=== PATIENT | female | born 1965 ===

== ENCOUNTER 2017-06-09 07:09 | Observation (INO) | payer BC ==
[~2017-06-09 07:09] MED LIST: Lactated Ringers 1,000 ML IV SCH; Lidocaine 1%/Sod Bicarbonate in NS 8.4% 1 ML Syringe IV PRN; Sodium Chloride 0.9% 10 ML Syringe FLUSH PRN
[2017-06-09] MEDS ORDERED: Rocuronium 50 MG/5 ML Vial ONE (07:11)
[2017-06-09] MEDS ORDERED: Ketorolac 30 MG/ML SDV ONE (07:11)
[2017-06-09] MEDS ORDERED: HYDROmorphone 1 MG/ML Syringe ONE ×2 (07:11→08:44)
[2017-06-09] MEDS ORDERED: ceFAZolin 1 GM Vial ONE (07:11)
[2017-06-09] MEDS ORDERED: Dexamethasone 4 MG/ML SDV ONE (07:11)
[2017-06-09] MEDS ORDERED: Midazolam 1 MG/ML 2 ML SDV ONE (07:11)
[2017-06-09] MEDS ORDERED: fentaNYL 250 MCG/5 ML SDV ONE (07:11)
[2017-06-09] MEDS ORDERED: Ondansetron 4 MG/2 ML SDV ONE (07:11)
[2017-06-09] MEDS ORDERED: Propofol 200 MG/20 ML SDV ONE ×2 (07:11→10:10)
[2017-06-09] MEDS ORDERED: Lidocaine 1% with EPINEPHrine 1:100,000 20 ML MDV ONE (07:21)
[2017-06-09] MEDS ORDERED: Bupivacaine 0.5% 30 ML SDV ONE (07:21)
[2017-06-09] MEDS ORDERED: Sodium Chloride 0.9% 50 ML SDV ONE (07:22)
--- NOTE | 2017-06-09 07:31 | PCM.PREANE ---
Preanesthetic Assessment - Anesthesia/Transfusion/Family Hx Anesthesia History: Prior Anesthesia Without Reaction Family History of Anesthesia Reaction: No Transfusion History: No Prior Transfusion(s) - Review of Systems General: Other (obesity, BMI 46.6, right otitis media) Pulmonary: No Symptoms, Other Cardiovascular: No Symptoms, Other Gastrointestinal: Other (occassional reflux) Neurological: No Symptoms Other: Reports: None - Physical Assessment NPO Status Date: 06/08/17 NPO Status Time: 20:00 Pulse: 83 O2 Sat by Pulse Oximetry: 95 Respiratory Rate: 16 Blood Pressure: 126/76 Height: 1.57 m Weight: 106.594 kg ASA Class: 2 Mental Status: Alert & Oriented x3 Dentition: Reports: Normal Dentition Thyro-Mental Finger Breadths: 3 Mouth Opening Finger Breadths: 3 ROM/Head Extension: Full Lungs: Clear to Auscultation, Normal Respiratory Effort Cardiovascular: Regular Rate, Regular Rhythm - Lab Values: Laboratory Last Values WBC 6.58 K/mm3 (3.98-10.04) 06/08/17 12:10 RBC 4.78 M/mm3 (3.98-5.22) 06/08/17 12:10 Hgb 13.8 gm/L (11.2-15.7) 06/08/17 12:10 Hct 40.8 % (34.1-44.9) 06/08/17 12:10 MCV 85.4 fl (79.4-94.8) 06/08/17 12:10 MCH 28.9 pg (25.6-32.2) 06/08/17 12:10 MCHC 33.8 g/dl (32.2-35.5) 06/08/17 12:10 RDW Std Deviation 40.2 fL (36.4-46.3) 06/08/17 12:10 Plt Count 317 K/mm3 (182-369) 06/08/17 12:10 MPV 9.7 fl (9.4-12.3) 06/08/17 12:10 Neut % (Auto) 54.7 % (34.0-71.1) 06/08/17 12:10 Lymph % (Auto) 38.4 % (19.3-51.7) 06/08/17 12:10 Hale % (Auto) 5.5 % (4.7-12.5) 06/08/17 12:10 Eos % (Auto) 1.2 (0.7-5.8) 06/08/17 12:10 Baso % (Auto) 0.2 % (0.1-1.2) 06/08/17 12:10 Neut # (Auto) 3.60 K/mm3 (1.56-6.13) 06/08/17 12:10 Lymph # (Auto) 2.53 K/mm3 (1.18-3.74) 06/08/17 12:10 Hale # (Auto) 0.36 K/mm3 (0.24-0.36) 06/08/17 12:10 Eos # (Auto) 0.08 K/mm3 (0.04-0.36) 06/08/17 12:10 Baso # (Auto) 0.01 K/mm3 (0.01-0.08) 06/08/17 12:10 Blood Type A POSITIVE 06/08/17 12:10 Gel Antibody Screen Negative 06/08/17 12:10 - Allergies Allergies/Adverse Reactions: Allergies Allergy/AdvReac Type Severity Reaction Status Date / Time No Known Allergies Allergy Verified 06/08/17 12:32 - Blood Blood Available: No Product(s) Available: None - Anesthesia Plan Pre-Op Medication Ordered: None - Acknowledgements Anesthesia Type Planned: General Anesthesia Pt an Appropriate Candidate for the Planned Anesthesia: Yes Alternatives and Risks of Anesthesia Discussed w Pt/Guardian: Yes Pt/Guardian Understands and Agrees with Anesthesia Plan: Yes PreAnesthesia Questionnaire HEENT History: Reports: Impaired Vision, Otitis Media, Other (See Below) Other HEENT History: serous otitis media R ear Cardiovascular History: Reports: None Respiratory History: Reports: Other (See Below) Other Respiratory History: ground glass opacity on chest xray Gastrointestinal History: Reports: None Genitourinary History: Reports: None RECREATION AIDE History: Reports: Other (See Below) Other OB/BYN History: post menopausal bleeding Other Musculoskeletal History: right shoulder pain Neurological History: Reports: None Psychiatric History: Reports: None Endocrine/Metabolic History: Reports: Obesity/BMI 30+ Hematologic History: Reports: None Immunologic History: Reports: None Oncologic (Cancer) History: Reports: None Dermatologic History: Reports: Other (See Below) Other Dermatologic History: soft tissue mass - Past Surgical History Head Surgeries/Procedures: Reports: None HEENT Surgical History: Reports: None Cardiovascular Surgical History: Reports: None Respiratory Surgical History: Reports: None GI Surgical History: Reports: Cholecystectomy, Colonoscopy Female Surgical History: Reports: None Male Surgical History: Reports: None Neurological Surgical History: Reports: None Musculoskeletal Surgical History: Reports: Other (See Below) Other Musculoskeletal Surgeries/Procedures:: foot surgery Oncologic Surgical History: Reports: None - SUBSTANCE USE Smoking Status *Q: Never Smoker Recreational Drug Use History: No - HOME MEDS Home Medications: Home Meds Cetirizine [ZyrTEC] 1 tab PO DAILY 08/05/16 [History] Estradiol [Vivelle-Dot] 1 patch TOP ASDIRECTED 08/05/16 [History] medroxyPROGESTERone Acetate [Medroxyprogesterone Acetate] 1.25 mg PO DAILY 08/05 [History] Fluticasone Propionate [Flonase] 1 spray NASBOTH DAILY 06/08/17 [History] - CURRENT (IN HOUSE) MEDS Current Meds: Current Medications Lactated Ringer's (Ringers, Lactated) 1,000 mls @ 125 mls/hr IV ASDIRECTED MAYRA Stop: 06/09/17 23:00 Lidocaine/Sodium Bicarbonate (Buffered Lidocaine 1% In Ns 8.4%) 0.25 ml IV ONETIME PRN PRN Reason: Prior to IV Start Stop: 06/09/17 18:00 Sodium Chloride (Saline Flush) 10 ml FLUSH ASDIRECTED PRN PRN Reason: Keep Vein Open Stop: 06/09/17 18:00 Discontinued Medications Cefazolin Sodium (Ancef) Confirm Administered Dose 2 gm .ROUTE .STK-MED ONE Stop: 06/09/17 07:12 Dexamethasone (Dexamethasone) Confirm Administered Dose 8 mg .ROUTE .STK-MED ONE Stop: 06/09/17 07:12 Fentanyl (Sublimaze) Confirm Administered Dose 250 mcg .ROUTE .STK-MED ONE Stop: 06/09/17 07:12 Hydromorphone HCl (Dilaudid) Confirm Administered Dose 1 mg .ROUTE .STK-MED ONE Stop: 06/09/17 07:12 Ketorolac Tromethamine (Toradol) Confirm Administered Dose 30 mg .ROUTE .STK- MED ONE Stop: 06/09/17 07:12 Midazolam HCl (Versed 1 Mg/Ml) Confirm Administered Dose 2 mg .ROUTE .STK-MED ONE Stop: 06/09/17 07:12 Ondansetron HCl (Zofran) Confirm Administered Dose 4 mg .ROUTE .STK-MED ONE Stop: 06/09/17 07:12 Propofol (Diprivan 20 Ml) Confirm Administered Dose 200 mg .ROUTE .STK-MED ONE Stop: 06/09/17 07:12 Rocuronium [place] (Zemuron) Confirm Administered Dose 50 mg .ROUTE .STK-MED ONE Stop: 06/09/17 07:12
[2017-06-09] MEDS ORDERED: Lactated Ringers 1,000 ML ONE ×2 (08:34→11:04)
[2017-06-09] MEDS ORDERED: Ondansetron 4 MG/2 ML SDV IVPUSH PRN ×2 (10:41→12:18)
[2017-06-09] MEDS ORDERED: fentaNYL 100 MCG/2 ML SDV IVPUSH PRN (10:41)
[2017-06-09] MEDS ORDERED: HYDROmorphone 0.5 MG/0.5 ML Syringe IVPUSH PRN (10:41)
--- NOTE | 2017-06-09 10:41 | PCM.POSTAN ---
POST ANESTHESIA ASSESSMENT - MENTAL STATUS Mental Status: Alert, Oriented - VITAL SIGNS Pulse Rate: 87 SaO2: 98 Resp Rate: 13 Blood Pressure: 140/80 Temperature: 36.7 C - RESPIRATORY Respiratory Status: Respiratory Rate WNL, Airway Patent, O2 Saturation Stable, Supplemental Oxygen - CARDIOVASCULAR CV Status: Pulse Rate WNL, Blood Pressure Stable - GASTROINTESTINAL GI Status: No Symptoms - PAIN Pain Score: 0 - POST OP HYDRATION Hydration Status: Adequate & Stable
--- NOTE | 2017-06-09 10:57 | PCM.OPNOTE ---
- General Post-Op/Procedure Note Date of Surgery/Procedure: 06/09/17 Operative Procedure(s): Laparoscope assisted vaginal hysterectomy bilateral salpingo-oophorectomy. Repair of bladder injury at surgery (cystorrhaphy) Pre Op Diagnosis: Postmenopausal bleeding Post-Op Diagnosis: Same plus injury to bladder at surgery (repaired) Anesthesia Technique: General ET Tube Primary Surgeon: Toby Cox Secondary Surgeon: Joshua Davey Anesthesia Provider: Carolina Welsh Weigher And Grader: Thor Bautista (Vaginal portion) Reason Weigher And Grader Was Necessary: patient safety, assist with difficult procedure and helf decrease co-morbidity and co-mortality (assistance essential in helping repair bladder) Role of Weigher And Grader: patient safety, assist with difficult procedure and helf decrease co-morbidity and co-mortality (assistance essential in helping repair bladder) Fluid Replacement, Intraop: 2,000 Output, Urine Amount: 45 (ante cystorrhaphy) EBL in mLs: 100 Drain/Tube Comments:: Monroy to gravity drainage close system Complications: Bladder injury identified at surgery repaired (cystorrhaphy) Condition: Good Free Text/Narrative:: Patient was transported to operating room #1 and placed under general anesthesia with endotracheal intubation in the low dorsal lithotomy position and prepared and draped in a sterile fashion. SCDs in place and functioning prior surgery Ancef 2 g given intravenously prior surgery. Timeout performed confirming name date of and procedure. Examination under anesthesia had revealed anterior uterus no adnexal masses. Monroy catheter was placed gravity drainage. Vaginal and abdominal prep having been performed and the patient draped in a sterile fashion uterine manipulator was placed to allow maneuvering of the uterus during surgery. Infraumbilical incision area was injected with 2 mL of 0.5% Marcaine without epinephrine and suprapubic area as well as injected with 2 mL of 0.5% Marcaine without epinephrine. Pneumoperitoneum needle was introduced and pneumoperitoneum was obtained the 5 mm trocar was then introduced at the umbilicus and prompt visualization of the intra-abdominal cavity. Suprapubic 5 mm port then introduced and utilizing forceps to grasp to manipulate the tissue both tubes and ovaries were identified patient had had previous cholecystectomy. The appendix was normal. Utilizing the Enseal apparatus and placing 2 additional ports one the left and right flank with transillumination of the abdominal cavity and after injecting 2 mL of 0.5% Marcaine and the 5 mm ports were introduced and the right tube and ovary grasped and electrocoagulated using Endo seal bipolar and proceeding in a pedicle fashion towards the uterus. Crossclamping the round ligament activating and incising. The uterine vasculature was isolated crossclamped activated in seal and incised with good hemostasis. Right-hand portion of bladder flap was created and pushed caudad. The left tube and ovary then grasped and elevated and utilizing Endo seal crossclamping activating and incising and proceeding to the area of the round ligament where it inserted into the uterus crossclamping activating and incising proceeding caudad crossclamping activating incising until the area of the lower uterine segment was approximated and bladder flap created on that side meeting at the midline. Hemostasis was normal the scope was removed and patient placed in the lithotomy position to began the vaginal portion of the procedure. The cervix was injected with approximately 15 mL of 0.25% lidocaine with epinephrine. Incising this into the tissues and circumscribing the cervix posterior colpotomy was then performed placing the long weighted speculum. Utilizing the Endo seal apparatus crossclamping activating incising the uterosacral and cardinal ligaments were incised. Proceeding cephalad additional clamp on each side to create small pedicle activated and incised and anterior colpotomy was then performed one additional pedicle bilaterally and the uterus tubes and ovaries removed in block. Upon incising into the anterior cul-de-sac A injury to the bladder occurred and was noticed and repaired. The injury was confirmed by injecting baby formula into the urinary catheter and confirming spillage through the bladder injury. There was no cautery injury to the edge of the bladder. The injury occurred during the anterior colpotomy portion of the procedure. The laceration and the bladder was oversewn with 2 layers first layer of 3-0 Monocryl running suture second layer running locking suture of 3-0 Monocryl and additional small rent just above that repair was also closed in 2 layers with 3-0 Monocryl. Confirming no spillage of baby formula after closure of the bladder injuries. The anterior posterior cuff approximated with 0 Monocryl running locking suture. An needle pack asthma sharp count correct 2 upon closure of the vaginal cuff. Laparoscopy was again performed by obtaining pneumoperitoneum and observing the surgery area there was no formula in the cul-de-sac. 120 mL of formula placed in the bladder and no leakage of formula either into the abdominal cavity or vaginally observed. Discussion was made concerning possible cystoscopy and decision made that it would not be performed. Sponge needle pack asthma sharp count correct 2 the abdominal cavity ports were removed and skin sutured with 4 -0 Monocryl. Dermabond applied. No blood transfusions required during the surgery. Patient was transported postanesthesia care unit in satisfactory condition. The Monroy catheter will be left in for approximately 2 weeks. Patient will be placed on Macrobid for urinary antisepsis. Serum creatinine has been ordered on preop lab work. I talked with the patient, her and daughter concerning the surgery and the noted complications. All questions answered voiced satisfaction One set of pictures 6 images image 001 shows the uterus with both fallopian tubes noted. Image 002 shows right tube and ovary image 003 shows left tube and ovary image 004 shows normal appendix image 005 shows area of the liver patient has had previous cholecystectomy image 006 shows the posterior cul-de-sac with the uterus at 12:00 central.
[2017-06-09] MEDS ORDERED: Acetaminophen/oxyCODONE 325-5 MG Tab PO PRN (12:18)
[2017-06-09] MEDS ORDERED: ESTRADIOL 0.05 MG/24 HR TRDERM SCH (12:18)
[2017-06-09] MEDS ORDERED: Ketorolac 15 MG/ML SDV IVPUSH PRN (16:00)
[2017-06-09] MEDS ORDERED: FLU Vacc QS 2017-18 (6mos UP)/PF 60 MCG/0.5 ML Syringe IM ONE (16:00)
[2017-06-09] MEDS: Phenazopyridine 95 MG Tab PO SCH ×3 (16:09→20:41)
--- NOTE | 2017-06-09 17:11 | PCM.SN ---
- Free Text/Narrative Note: Afebril. Pain under control. No vaginal bleeding or leakage of yellow fluid. Output past hour 325 ml, clear, yellow, no formula, no blood. Patient ambulating. Patient stable.
[2017-06-09] MEDS: Nitrofurantoin Monohydrate/Macrocrystalline 100 MG Cap PO SCH ×2 (19:32→22:02)
[2017-06-09] MEDS ORDERED: Acetaminophen 325 MG Tab PO PRN (19:35)
[2017-06-09] MEDS ORDERED: Ibuprofen 600 MG Tab PO PRN (19:36)
[2017-06-10 07:34] VITALS: BP 155/71
--- NOTE | 2017-06-10 08:07 | PCM48HPAN ---
Post Anesthesia Note - EVALUATION WITHIN 48HRS OF ANESTHETIC Vital Signs in Normal Range: Yes Patient Participated in Evaluation: Yes Respiratory Function Stable: Yes Airway Patent: Yes Cardiovascular Function Stable: Yes Hydration Status Stable: Yes Pain Control Satisfactory: Yes Nausea and Vomiting Control Satisfactory: Yes Mental Status Recovered: Yes
[2017-06-10] MEDS: Nitrofurantoin Monohydrate/Macrocrystalline 100 MG Cap PO SCH (08:33)
[2017-06-10] MEDS: Phenazopyridine 95 MG Tab PO SCH (08:33)
--- NOTE | 2017-06-10 08:50 | PCM.DCSUM1 ---
Discharge Summary - Hospital Course Free Text/Narrative:: [facility] Post-Op/Procedure Note Patient Name: ADILENE DAVILA Date of : 65 Patient Status: Observation Attending Provider: Toby Cox Date: 06/09/17 10:51 Initialization Date: 06/09/17 10:51 - General Post-Op/Procedure Note Date of Surgery/Procedure: 06/09/17 Operative Procedure(s): Laparoscope assisted vaginal hysterectomy bilateral salpingo-oophorectomy. Repair of bladder injury at surgery (cystorrhaphy) Pre Op Diagnosis: Postmenopausal bleeding Post-Op Diagnosis: Same plus injury to bladder at surgery (repaired) Anesthesia Technique: General ET Tube Primary Surgeon: Toby Cox Secondary Surgeon: Joshua Davey Anesthesia Provider: Carolina Welsh Assembly Person: Thor Bautista (Vaginal portion) Reason Assembly Person Was Necessary: patient safety, assist with difficult procedure and helf decrease co-morbidity and co-mortality (assistance essential in helping repair bladder) Role of Assembly Person: patient safety, assist with difficult procedure and helf decrease co-morbidity and co-mortality (assistance essential in helping repair bladder) Fluid Replacement, Intraop: 2,000 Output, Urine Amount: 45 (ante cystorrhaphy) EBL in mLs: 100 Drain/Tube Comments:: Mason to gravity drainage close system Complications: Bladder injury identified at surgery repaired (cystorrhaphy) Condition: Good Free Text/Narrative:: Patient was transported to operating room #1 and placed under general anesthesia with endotracheal intubation in the low dorsal lithotomy position and prepared and draped in a sterile fashion. SCDs in place and functioning prior surgery Ancef 2 g given intravenously prior surgery. Timeout performed confirming name date of and procedure. Examination under anesthesia had revealed anterior uterus no adnexal masses. Mason catheter was placed gravity drainage. Vaginal and abdominal prep having been performed and the patient draped in a sterile fashion uterine manipulator was placed to allow maneuvering of the uterus during surgery. Infraumbilical incision area was injected with 2 mL of 0.5% Marcaine without epinephrine and suprapubic area as well as injected with 2 mL of 0.5% Marcaine without epinephrine. Pneumoperitoneum needle was introduced and pneumoperitoneum was obtained the 5 mm trocar was then introduced at the umbilicus and prompt visualization of the intra-abdominal cavity. Suprapubic 5 mm port then introduced and utilizing forceps to grasp to manipulate the tissue both tubes and ovaries were identified patient had had previous cholecystectomy. The appendix was normal. Utilizing the Enseal apparatus and placing 2 additional ports one the left and right flank with transillumination of the abdominal cavity and after injecting 2 mL of 0.5% Marcaine and the 5 mm ports were introduced and the right tube and ovary grasped and electrocoagulated using Endo seal bipolar and proceeding in a pedicle fashion towards the uterus. Crossclamping the round ligament activating and incising. The uterine vasculature was isolated crossclamped activated in seal and incised with good hemostasis. Right-hand portion of bladder flap was created and pushed caudad. The left tube and ovary then grasped and elevated and utilizing Endo seal crossclamping activating and incising and proceeding to the area of the round ligament where it inserted into the uterus crossclamping activating and incising proceeding caudad crossclamping activating incising until the area of the lower uterine segment was approximated and bladder flap created on that side meeting at the midline. Hemostasis was normal the scope was removed and patient placed in the lithotomy position to began the vaginal portion of the procedure. The cervix was injected with approximately 15 mL of 0.25% lidocaine with epinephrine. Incising this into the tissues and circumscribing the cervix posterior colpotomy was then performed placing the long weighted speculum. Utilizing the Endo seal apparatus crossclamping activating incising the uterosacral and cardinal ligaments were incised. Proceeding cephalad additional clamp on each side to create small pedicle activated and incised and anterior colpotomy was then performed one additional pedicle bilaterally and the uterus tubes and ovaries removed in block. Upon incising into the anterior cul-de-sac A injury to the bladder occurred and was noticed and repaired. The injury was confirmed by injecting baby formula into the urinary catheter and confirming spillage through the bladder injury. There was no cautery injury to the edge of the bladder. The injury occurred during the anterior colpotomy portion of the procedure. The laceration and the bladder was oversewn with 2 layers first layer of 3-0 Monocryl running suture second layer running locking suture of 3-0 Monocryl and additional small rent just above that repair was also closed in 2 layers with 3-0 Monocryl. Confirming no spillage of baby formula after closure of the bladder injuries. The anterior posterior cuff approximated with 0 Monocryl running locking suture. An needle pack asthma sharp count correct 2 upon closure of the vaginal cuff. Laparoscopy was again performed by obtaining pneumoperitoneum and observing the surgery area there was no formula in the cul-de-sac. 120 mL of formula placed in the bladder and no leakage of formula either into the abdominal cavity or vaginally observed. Discussion was made concerning possible cystoscopy and decision made that it would not be performed. Sponge needle pack asthma sharp count correct 2 the abdominal cavity ports were removed and skin sutured with 4 -0 Monocryl. Dermabond applied. No blood transfusions required during the surgery. Patient was transported postanesthesia care unit in satisfactory condition. The Mason catheter will be left in for approximately 2 weeks. Patient will be placed on Macrobid for urinary antisepsis. Serum creatinine has been ordered on preop lab work. I talked with the patient, her and daughter concerning the surgery and the noted complications. All questions answered voiced satisfaction One set of pictures 6 images image 001 shows the uterus with both fallopian tubes noted. Image 002 shows right tube and ovary image 003 shows left tube and ovary image 004 shows normal appendix image 005 shows area of the liver patient has had previous cholecystectomy image 006 shows the posterior cul-de-sac with the uterus at 12:00 central. Creatinine 0.9 before surgery and 0.8 today. Output good since surgery. Will keep mason in place with leg bag and mason care training. RTC 1 week. Macrobid 100 mg bid x2 weeks, Pyridium tid x2 weeks and Estradiol Transdermal Patch 0.05 change every Thursday and disp 180 refill 3 HPI Initial Comments: [facility] Post-Op/Procedure Note Patient Name: ADILENE DAVILA Date of : 65 Patient Status: Observation Attending Provider: Toby Cox Date: 06/09/17 10:51 Initialization Date: 06/09/17 10:51 - General Post-Op/Procedure Note Date of Surgery/Procedure: 06/09/17 Operative Procedure(s): Laparoscope assisted vaginal hysterectomy bilateral salpingo-oophorectomy. Repair of bladder injury at surgery (cystorrhaphy) Pre Op Diagnosis: Postmenopausal bleeding Post-Op Diagnosis: Same plus injury to bladder at surgery (repaired) Anesthesia Technique: General ET Tube Primary Surgeon: Toby Cox Secondary Surgeon: Joshua Davey Anesthesia Provider: Carolina Welsh Assembly Person: Thor Bautista (Vaginal portion) Reason Assembly Person Was Necessary: patient safety, assist with difficult procedure and helf decrease co-morbidity and co-mortality (assistance essential in helping repair bladder) Role of Assembly Person: patient safety, assist with difficult procedure and helf decrease co-morbidity and co-mortality (assistance essential in helping repair bladder) Fluid Replacement, Intraop: 2,000 Output, Urine Amount: 45 (ante cystorrhaphy) EBL in mLs: 100 Drain/Tube Comments:: Mason to gravity drainage close system Complications: Bladder injury identified at surgery repaired (cystorrhaphy) Condition: Good Free Text/Narrative:: Patient was transported to operating room #1 and placed under general anesthesia with endotracheal intubation in the low dorsal lithotomy position and prepared and draped in a sterile fashion. SCDs in place and functioning prior surgery Ancef 2 g given intravenously prior surgery. Timeout performed confirming name date of and procedure. Examination under anesthesia had revealed anterior uterus no adnexal masses. Mason catheter was placed gravity drainage. Vaginal and abdominal prep having been performed and the patient draped in a sterile fashion uterine manipulator was placed to allow maneuvering of the uterus during surgery. Infraumbilical incision area was injected with 2 mL of 0.5% Marcaine without epinephrine and suprapubic area as well as injected with 2 mL of 0.5% Marcaine without epinephrine. Pneumoperitoneum needle was introduced and pneumoperitoneum was obtained the 5 mm trocar was then introduced at the umbilicus and prompt visualization of the intra-abdominal cavity. Suprapubic 5 mm port then introduced and utilizing forceps to grasp to manipulate the tissue both tubes and ovaries were identified patient had had previous cholecystectomy. The appendix was normal. Utilizing the Enseal apparatus and placing 2 additional ports one the left and right flank with transillumination of the abdominal cavity and after injecting 2 mL of 0.5% Marcaine and the 5 mm ports were introduced and the right tube and ovary grasped and electrocoagulated using Endo seal bipolar and proceeding in a pedicle fashion towards the uterus. Crossclamping the round ligament activating and incising. The uterine vasculature was isolated crossclamped activated in seal and incised with good hemostasis. Right-hand portion of bladder flap was created and pushed caudad. The left tube and ovary then grasped and elevated and utilizing Endo seal crossclamping activating and incising and proceeding to the area of the round ligament where it inserted into the uterus crossclamping activating and incising proceeding caudad crossclamping activating incising until the area of the lower uterine segment was approximated and bladder flap created on that side meeting at the midline. Hemostasis was normal the scope was removed and patient placed in the lithotomy position to began the vaginal portion of the procedure. The cervix was injected with approximately 15 mL of 0.25% lidocaine with epinephrine. Incising this into the tissues and circumscribing the cervix posterior colpotomy was then performed placing the long weighted speculum. Utilizing the Endo seal apparatus crossclamping activating incising the uterosacral and cardinal ligaments were incised. Proceeding cephalad additional clamp on each side to create small pedicle activated and incised and anterior colpotomy was then performed one additional pedicle bilaterally and the uterus tubes and ovaries removed in block. Upon incising into the anterior cul-de-sac A injury to the bladder occurred and was noticed and repaired. The injury was confirmed by injecting baby formula into the urinary catheter and confirming spillage through the bladder injury. There was no cautery injury to the edge of the bladder. The injury occurred during the anterior colpotomy portion of the procedure. The laceration and the bladder was oversewn with 2 layers first layer of 3-0 Monocryl running suture second layer running locking suture of 3-0 Monocryl and additional small rent just above that repair was also closed in 2 layers with 3-0 Monocryl. Confirming no spillage of baby formula after closure of the bladder injuries. The anterior posterior cuff approximated with 0 Monocryl running locking suture. An needle pack asthma sharp count correct 2 upon closure of the vaginal cuff. Laparoscopy was again performed by obtaining pneumoperitoneum and observing the surgery area there was no formula in the cul-de-sac. 120 mL of formula placed in the bladder and no leakage of formula either into the abdominal cavity or vaginally observed. Discussion was made concerning possible cystoscopy and decision made that it would not be performed. Sponge needle pack asthma sharp count correct 2 the abdominal cavity ports were removed and skin sutured with 4 -0 Monocryl. Dermabond applied. No blood transfusions required during the surgery. Patient was transported postanesthesia care unit in satisfactory condition. The Mason catheter will be left in for approximately 2 weeks. Patient will be placed on Macrobid for urinary antisepsis. Serum creatinine has been ordered on preop lab work. I talked with the patient, her and daughter concerning the surgery and the noted complications. All questions answered voiced satisfaction One set of pictures 6 images image 001 shows the uterus with both fallopian tubes noted. Image 002 shows right tube and ovary image 003 shows left tube and ovary image 004 shows normal appendix image 005 shows area of the liver patient has had previous cholecystectomy image 006 shows the posterior cul-de-sac with the uterus at 12:00 central. Creatinine 0.9 before surgery and 0.8 today. Output good since surgery. Will keep mason in place with leg bag and mason care training. RTC 1 week. Macrobid 100 mg bid x2 weeks, Pyridium tid x2 weeks and Estradiol Transdermal Patch 0.05 change every Thursday and disp 180 refill 3 Brief History: [facility] . Post-Op/Procedure Note. Patient Name: ADILENE DAVILA Record Number: [id number]. Date of : Patient Status: Observation. [facility] Number: [id number]. Date: 06/09/17 10:51Initialization Date: 06/09/17 10:51. - General Post-Op/Procedure Note. Date of Surgery/Procedure: 06/09/17. Operative Procedure(s): Laparoscope assisted vaginal hysterectomy bilateral salpingo-oophorectomy. Repair of bladder injury at surgery (cystorrhaphy). Pre Op Diagnosis: Postmenopausal bleeding. Post-Op Diagnosis: Same plus injury to bladder at surgery (repaired). Anesthesia Technique: General ET Tube. Primary Surgeon: Toby Cox. Secondary Surgeon: Joshua Davey. Anesthesia Provider: Carolina Welsh. Assembly Person: Thor Bautista (Vaginal portion). Reason Assembly Person Was Necessary: patient safety, assist with difficult procedure and helf decrease co-morbidity and co-mortality (assistance essential in helping repair bladder). Role of Assembly Person: patient safety, assist with difficult procedure and helf decrease co-morbidity and co-mortality (assistance essential in helping repair bladder). Fluid Replacement, Intraop: 2 ,000. Output, Urine Amount: 45 (ante cystorrhaphy). EBL in mLs: 100. Drain/ Tube Comments:: Mason to gravity drainage close system. Complications: Bladder injury identified at surgery repaired (cystorrhaphy). Condition: Good. Free Text/Narrative:: Patient was transported to operating room #1 and placed under general anesthesia with endotracheal intubation in the low dorsal lithotomy position and prepared and draped in a sterile fashion. SCDs in place and functioning prior surgery Ancef 2 g given intravenously prior surgery. Timeout performed confirming name date of and procedure. Examination under anesthesia had revealed anterior uterus no adnexal masses. Mason catheter was placed gravity drainage. Vaginal and abdominal prep having been performed and the patient draped in a sterile fashion uterine manipulator was placed to allow maneuvering of the uterus during surgery. Infraumbilical incision area was injected with 2 mL of 0.5% Marcaine without epinephrine and suprapubic area as well as injected with 2 mL of 0.5% Marcaine without epinephrine. Pneumoperitoneum needle was introduced and pneumoperitoneum was obtained the 5 mm trocar was then introduced at the umbilicus and prompt visualization of the intra-abdominal cavity. Suprapubic 5 mm port then introduced and utilizing forceps to grasp to manipulate the tissue both tubes and ovaries were identified patient had had previous cholecystectomy. The appendix was normal. Utilizing the Enseal apparatus and placing 2 additional ports one the left and right flank with transillumination of the abdominal cavity and after injecting 2 mL of 0.5% Marcaine and the 5 mm ports were introduced and the right tube and ovary grasped and electrocoagulated using Endo seal bipolar and proceeding in a pedicle fashion towards the uterus. Crossclamping the round ligament activating and incising. The uterine vasculature was isolated crossclamped activated in seal and incised with good hemostasis. Right-hand portion of bladder flap was created and pushed caudad. The left tube and ovary then grasped and elevated and utilizing Endo seal crossclamping activating and incising and proceeding to the area of the round ligament where it inserted into the uterus crossclamping activating and incising proceeding caudad crossclamping activating incising until the area of the lower uterine segment was approximated and bladder flap created on that side meeting at the midline. Hemostasis was normal the scope was removed and patient placed in the lithotomy position to began the vaginal portion of the procedure. The cervix was injected with approximately 15 mL of 0.25% lidocaine with epinephrine. Incising this into the tissues and circumscribing the cervix posterior colpotomy was then performed placing the long weighted speculum. Utilizing the Endo seal apparatus crossclamping activating incising the uterosacral and cardinal ligaments were incised. Proceeding cephalad additional clamp on each side to create small pedicle activated and incised and anterior colpotomy was then performed one additional pedicle bilaterally and the uterus tubes and ovaries removed in block. Upon incising into the anterior cul-de-sac A injury to the bladder occurred and was noticed and repaired. The injury was confirmed by injecting baby formula into the urinary catheter and confirming spillage through the bladder injury. There was no cautery injury to the edge of the bladder. The injury occurred during the anterior colpotomy portion of the procedure. The laceration and the bladder was oversewn with 2 layers first layer of 3-0 Monocryl running suture second layer running locking suture of 3-0 Monocryl and additional small rent just above that repair was also closed in 2 layers with 3-0 Monocryl. Confirming no spillage of baby formula after closure of the bladder injuries. The anterior posterior cuff approximated with 0 Monocryl running locking suture. An needle pack asthma sharp count correct 2 upon closure of the vaginal cuff. Laparoscopy was again performed by obtaining pneumoperitoneum and observing the surgery area there was no formula in the cul-de-sac. 120 mL of formula placed in the bladder and no leakage of formula either into the abdominal cavity or vaginally observed. Discussion was made concerning possible cystoscopy and decision made that it would not be performed. Sponge needle pack asthma sharp count correct 2 the abdominal cavity ports were removed and skin sutured with 4 -0 Monocryl. Dermabond applied. No blood transfusions required during the surgery. Patient was transported postanesthesia care unit in satisfactory condition. The Mason catheter will be left in for approximately 2 weeks. Patient will be placed on Macrobid for urinary antisepsis. Serum creatinine has been ordered on preop lab work. I talked with the patient, her and daughter concerning the surgery and the noted complications. All questions answered voiced satisfaction. One set of pictures 6 images image 001 shows the uterus with both fallopian tubes noted. Image 002 shows right tube and ovary image 003 shows left tube and ovary image 004 shows normal appendix image 005 shows area of the liver patient has had previous cholecystectomy image 006 shows the posterior cul-de-sac with the uterus at 12:00 central. Creatinine 0.9 before surgery and 0.8 today. Output good since surgery. Will keep mason in place with leg bag and mason care training. RTC 1 week. Macrobid 100 mg bid x2 weeks, Pyridium tid x2 weeks and Estradiol Transdermal Patch 0.05 change every Thursday and disp 180 refill 3 - Discharge Data Discharge Date: 06/10/17 Discharge Disposition: Home, Self-Care 01 Condition: Good - Discharge Diagnosis/Problem(s) (1) Post-menopausal bleeding SNOMED Code(s): 29889146 ICD Code: N95.0 - POSTMENOPAUSAL BLEEDING Status: Acute Current Visit: Yes (2) Intraoperative bladder injury SNOMED Code(s): 56884364 ICD Code: N99.81 - OTHER INTRAOPERATIVE COMPLICATIONS OF GENITOURINARY SYSTEM Status: Acute Current Visit: Yes - Patient Summary/Data Operative Procedure(s) Performed: Laparoscope assisted vaginal hysterectomy bilateral salpingo-oophorectomy. Repair of bladder injury at surgery ( cystorrhaphy) Complications: None after surgery. Consults: None Hospital Course: Uneventful - Patient Instructions Diet: Regular Diet as Tolerated Driving: Do Not Drive (48 hours.) Showering/Bathing: May Shower, No Tub Bathing/Swimming (For 6 weeks.) Wound/Incision Care: Keep Operative Site/Wound Site Clean and Dry Notify Provider of: Fever, Increased Pain, Swelling and Redness, Drainage, Nausea and/or Vomiting Other/Special Instructions: Instructions in use of leg bag and urinary catheter care. - Discharge Plan Prescriptions/Med Rec: Estradiol [Estradiol Transdermal Patch] 0.05 mg TD ASDIRECTED 90 Days #180 patch.tdwk Nitrofurantoin Monohyd/M-Cryst [IJD: Nitrofurantoin Citrus-MCR] 100 mg PO BID #30 capsule Phenazopyridine [Urinary Pain Relief] 95 mg PO TIDPC #40 tablet Home Medications: Home Meds Cetirizine [ZyrTEC] 1 tab PO DAILY 08/05/16 [History] Estradiol [Vivelle-Dot] 1 patch TOP ASDIRECTED 08/05/16 [History] Fluticasone Propionate [Flonase] 1 spray NASBOTH DAILY 06/08/17 [History] Acetaminophen [Tylenol] 650 mg PO Q6H PRN tablet 06/10/17 [Rx] Estradiol [Estradiol Transdermal Patch] 0.05 mg TD ASDIRECTED 90 Days #180 patch.tdwk 06/10/17 [Rx] Ibuprofen [IJD: Ibuprofen] 600 mg PO Q6H PRN tablet 06/10/17 [Rx] Nitrofurantoin Monohyd/M-Cryst [IJD: Nitrofurantoin Citrus-MCR] 100 mg PO BID #30 capsule 06/10/17 [Rx] Phenazopyridine [Urinary Pain Relief] 95 mg PO TIDPC #40 tablet 06/10/17 [Rx] Patient Handouts: Mason Catheter Care, Adult, Laparoscopically Assisted Vaginal Hysterectomy, Care After Referrals: Toby Cox MD [Physician] - (Patient has appointment to see me in 1 week) - Discharge Summary/Plan Comment DC Time >30 min.: No - Patient Data Vitals - Most Recent: Last Vital Signs Temp 98.2 F 06/10/17 07:29 Pulse 73 06/10/17 07:29 Resp 16 06/10/17 07:29 BP 155/71 H 06/10/17 07:29 Pulse Ox 98 06/10/17 07:29 Weight - Most Recent: 235 lb I&O - Last 24 hours: Intake & Output 06/09/17 06/10/17 06/10/17 22:59 06:59 14:59 Intake Total 880 600 Output Total 1750 1200 250 Balance -870 -600 -250 Lab Results - Last 24 hrs: Laboratory Results - last 24 hr 06/08/17 06/10/17 06/10/17 Range/Units 12:10 06:40 06:40 WBC 9.77 (3.98-10.04) K/mm3 RBC 4.14 (3.98-5.22) M/mm3 Hgb 12.5 (11.2-15.7) gm/L Hct 35.9 (34.1-44.9) % MCV 86.7 (79.4-94.8) fl MCH 30.2 (25.6-32.2) pg MCHC 34.8 (32.2-35.5) g/dl RDW Std Deviation 40.2 (36.4-46.3) fL Plt Count 284 (182-369) K/mm3 MPV 9.9 (9.4-12.3) fl Neut % (Auto) 72.0 H (34.0-71.1) % Lymph % (Auto) 21.7 (19.3-51.7) % Citrus % (Auto) 6.2 (4.7-12.5) % Eos % (Auto) 0 L (0.7-5.8) Baso % (Auto) 0.0 L (0.1-1.2) % Neut # (Auto) 7.03 H (1.56-6.13) K/mm3 Lymph # (Auto) 2.12 (1.18-3.74) K/mm3 Citrus # (Auto) 0.61 H (0.24-0.36) K/mm3 Eos # (Auto) 0.00 L (0.04-0.36) K/mm3 Baso # (Auto) 0.00 L (0.01-0.08) K/mm3 Creatinine 0.9 0.8 (0.55-1.02) mg/dL Est Cr Clr Drug Dosing 58.49 65.80 mL/min Estimated GFR (MDRD) > 60 > 60 (>60) mL/min Med Orders - Current: Current Medications Acetaminophen (Tylenol) 650 mg PO Q4H PRN PRN Reason: Headache/Pain Last Admin: 06/09/17 19:42 Dose: 650 mg Estradiol (Vivelle-Dot) 0.05 mg TRDERM ASDIRECTED [facility] Flunisolide (Nasalide Nasal [place]) 0 ml NASBOTH DAILY [facility] Ibuprofen (Motrin) 600 mg PO Q6H PRN PRN Reason: Pain Last Admin: 06/10/17 07:25 Dose: 600 mg Ketorolac Tromethamine (Toradol) 30 mg IVPUSH Q6H PRN PRN Reason: Pain (moderate 4-6) Stop: 06/10/17 11:17 Loratadine (Claritin) 10 mg PO DAILY [facility] Last Admin: 06/10/17 08:33 Dose: 10 mg Nitrofurantoin Macrocrystals (Macrobid) 100 mg PO BID [facility] Last Admin: 06/10/17 08:33 Dose: 100 mg Ondansetron HCl (Zofran) 4 mg IVPUSH Q4H PRN PRN Reason: Nausea/Vomiting Oxycodone/Acetaminophen (Percocet 325-5 Mg) 2 tab PO Q4H PRN PRN Reason: Pain (moderate 4-6) Phenazopyridine HCl (Urinary Pain Relief) 95 mg PO TIDPC [facility] Last Admin: 06/10/17 08:33 Dose: 95 mg Discontinued Medications Bupivacaine HCl (Marcaine 0.5%) Confirm Administered Dose 30 ml .ROUTE .STK-MED ONE Stop: 06/09/17 07:22 Last Admin: 06/09/17 08:23 Dose: 25 ml Cefazolin Sodium (Ancef) Confirm Administered Dose 2 gm .ROUTE .STK-MED ONE Stop: 06/09/17 07:12 Dexamethasone (Dexamethasone) Confirm Administered Dose 8 mg .ROUTE .STK-MED ONE Stop: 06/09/17 07:12 Fentanyl (Sublimaze) Confirm Administered Dose 250 mcg .ROUTE .STK-MED ONE Stop: 06/09/17 07:12 Fentanyl (Sublimaze) 50 mcg IVPUSH Q5M PRN PRN Reason: pain Hydromorphone HCl (Dilaudid) Confirm Administered Dose 1 mg .ROUTE .STK-MED ONE Stop: 06/09/17 07:12 Hydromorphone HCl (Dilaudid) Confirm Administered Dose 1 mg .ROUTE .STK-MED ONE Stop: 06/09/17 08:45 Hydromorphone HCl (Dilaudid) 0.5 mg IVPUSH Q15M PRN PRN Reason: Pain (severe 7-10) Lactated Ringer's (Ringers, Lactated) 1,000 mls @ 125 mls/hr IV ASDIRECTED [facility] Stop: 06/09/17 23:00 Last Admin: 06/09/17 07:30 Dose: 125 mls/hr Lactated Ringer's (Ringers, Lactated) Confirm Administered Dose 1,000 mls @ as directed .ROUTE .STK-MED ONE Stop: 06/09/17 08:35 Lactated Ringer's (Ringers, Lactated) Confirm Administered Dose 1,000 mls @ as directed .ROUTE .STK-MED ONE Stop: 06/09/17 11:05 Influenza Virus Vaccine (Pharmacy To Dose - Influenza Vaccine) 1 each IM ONETIME ONE Stop: 06/09/17 15:36 Influenza Virus Vaccine (Flulaval Quad [id number]) 60 mcg IM .ONCE ONE Stop: 06/09/17 16:01 Last Admin: 06/10/17 08:38 Dose: 60 mcg Ketorolac Tromethamine (Toradol) Confirm Administered Dose 30 mg .ROUTE .STK- MED ONE Stop: 06/09/17 07:12 Lidocaine/Epinephrine (Xylocaine 1% With Epinephrine 1:100,000) Confirm Administered Dose 20 ml .ROUTE .STK-MED ONE Stop: 06/09/17 07:22 Last Admin: 06/09/17 09:15 Dose: 5 ml Lidocaine/Sodium Bicarbonate (Buffered Lidocaine 1% In Ns 8.4%) 0.25 ml IV ONETIME PRN PRN Reason: Prior to IV Start Stop: 06/09/17 18:00 Last Admin: 06/09/17 07:29 Dose: 0.25 ml Midazolam HCl (Versed 1 Mg/Ml) Confirm Administered Dose 2 mg .ROUTE .STK-MED ONE Stop: 06/09/17 07:12 Ondansetron HCl (Zofran) Confirm Administered Dose 4 mg .ROUTE .STK-MED ONE Stop: 06/09/17 07:12 Ondansetron HCl (Zofran) 4 mg IVPUSH ONETIME PRN PRN Reason: Nausea/Vomiting Propofol (Diprivan 20 Ml) Confirm Administered Dose 200 mg .ROUTE .STK-MED ONE Stop: 06/09/17 07:12 Propofol (Diprivan 20 Ml) Confirm Administered Dose 200 mg .ROUTE .STK-MED ONE Stop: 06/09/17 10:11 Rocuronium [place] (Zemuron) Confirm Administered Dose 50 mg .ROUTE .STK-MED ONE Stop: 06/09/17 07:12 Sodium Chloride (Saline Flush) 10 ml FLUSH ASDIRECTED PRN PRN Reason: Keep Vein Open Stop: 06/09/17 18:00 Sodium Chloride (Normal Saline) Confirm Administered Dose 50 ml .ROUTE .STK-MED ONE Stop: 06/09/17 07:23 Last Admin: 06/09/17 09:15 Dose: 15 ml *Q Meaningful Use (DIS) - VTE *Q VTE Criteria *Q: - Stroke *Q Stroke Criteria *Q: - AMI *Q AMI Criteria *Q:
[2017-06-10] MEDS ORDERED: Loratadine 10 MG Tab PO SCH (09:00)
== END 2017-06-10 10:06 | disposition home or self-care (01) ==
LOC: JD.SDS 07:09 → JD.OB 14:35
PROVIDERS: ADMIT Obstetrics & Gynecology; ATTEND Obstetrics & Gynecology
DX: D25.1 Intramural leiomyoma of uterus (principal); N73.6 Female pelvic peritoneal adhesions (postinfective); S37.29XA Other injury of bladder, initial encounter; E66.9 Obesity, unspecified; Z79.51 Long term (current) use of inhaled steroids; Z79.899 Other long term (current) drug therapy; Z98.890 Other specified postprocedural states; Z90.49 Acquired absence of other specified parts of digestive tract; Z87.891 Personal history of nicotine dependence; Z68.42 Body mass index [BMI] 45.0-49.9, adult
CPT/HCPCS: 36415; 51860; 58571; 81025; 82565; 85025; 86850; 86900; 86901; A9270; J0690; J1100; J1170; J1885; J2250; J2405; J3010; J7120; 00840; 90686; G0008; G0378; J2704